=== PATIENT | male | born 1995 | race Caucasian/White ===

== ENCOUNTER 2019-07-02 14:25 | Emergency (ER) | payer BC ==
--- NOTE | 2019-07-02 15:46 | RAD ---
LEFT FOOT: Three views. 07/02/19 HISTORY: Puncture injury. No osseous abnormality. No soft tissue radiopaque foreign body identified. IMPRESSION: Unremarkable exam. POS: [facility]
== END 2019-07-02 15:04 | disposition home or self-care (01) ==
LOC: BURERS 14:25
DX: S91.332A Puncture wound without foreign body, left foot, initial encounter (principal); F17.220 Nicotine dependence, chewing tobacco, uncomplicated; W20.8XXA Other cause of strike by thrown, projected or falling object, initial encounter